=== PATIENT | female | born 1950 | race Two or more races ===

== ENCOUNTER 2017-05-31 09:01 | Emergency (ER) | payer OTHER, MEDICAID ==
[~2017-05-31] VITALS: Ht 154.9 cm; Wt 88.9 kg
[2017-05-31 09:47] LABS: Basophils # (auto) 0.1 uL; Basophils % (auto) 1.1 % (0.0-2.0); Eosinophils # (auto) 0.3 uL; Eosinophils % (auto) 3.9 % (0.0-7.0); Hematocrit 39.7 % (36.0-46.0); Hemoglobin 13.1 g/dL (12.2-16.2); Lymphocytes # (auto) 1.8 uL; Lymphocytes % (auto) 24.1 % (10.0-50.0); Mean Corpuscular Hemoglobin 29.1 pg (28.0-32.0); Mean Corpuscular Hgb Conc. 32.9 g/dL (32.0-36.0); Mean Corpuscular Volume 88.4 fL (80.0-100.0); Mean Platelet Volume 8.9 fL (6.9-10.8); Monocytes # (auto) 0.5 uL; Neutrophils # (auto) 4.7 uL; Neutrophils % (auto) 63.9 % (37.0-80.0); Nucleated Red Blood Cells % 0.2 %; Platelet Count (auto) 217 10^3/uL (140-450); Red Cell Distribution Width 14.7 % (11.8-14.3); White Blood Cell 7.4 10^3/uL (4.4-10.8)
[2017-05-31 10:10] LABS: Urine RBC None Seen /hpf (0 - 4)
[2017-05-31 10:19] LABS: Albumin 3.8 g/dL (3.4-5.0); Alkaline Phosphatase 115 U/L (45-117); Anion Gap 5 (5-15); Aspartate Aminotransferase 42 U/L (15-37); BUN/Creatinine Ratio 19.2; Bilirubin, Total 0.3 mg/dL (0.2-1.0); Blood Urea Nitrogen 15 mg/dL (7-18); Carbon Dioxide 28 mmol/L (21-32); Chloride 102 mmol/L (98-107); GFR African American 95 mL/min; GFR Non-African American 79 mL/min; Glucose 116 mg/dL (74-106); Potassium 5.1 mmol/L (3.5-5.1); Sodium 135 mmol/L (136-145); Total Protein 7.9 g/dL (6.4-8.2)
[2017-05-31 10:20] LABS: Urine Bilirubin Negative (Negative); Urine Blood Negative /uL (Negative); Urine Color Yellow (Yellow); Urine Glucose Normal (Normal); Urine Ketone Negative (Negative); Urine Nitrite Negative (Negative); Urine Squamous Epithelial Cell FEW /hpf (<5); Urine Urobilinogen Normal (Negative); Urine pH 6.5 (5.0-8.0)
[2017-05-31 10:50] VITALS: BP 137/69
[2017-05-31] MEDS ORDERED: POTASSIUM CHL 10% (20 MEQ/15ML) 15ml ORAL SOLN PO ONE (11:00)
== END 2017-05-31 11:17 | disposition home or self-care (01) ==
LOC: ER 09:01
DX: R51 Headache (principal); E11.9 Type 2 diabetes mellitus without complications; I10 Essential (primary) hypertension
CPT/HCPCS: 36415; 70450; 71010; 80053; 81001; 84484; 85025; 93005; 94761

== ENCOUNTER 2020-06-21 18:06 | Inpatient (IN) | payer OTHER, MEDICAID ==
[~2020-06-21] VITALS: Ht 152.4 cm; Wt 84.0 kg
[2020-06-21 20:09] LABS: Basophils # (auto) 0 10 ^3/uL (0-0.2); Basophils % (auto) 0.1 % (0.0-2.0); Eosinophils # (auto) 0 10 ^3/uL (0-0.8); Eosinophils % (auto) 0.3 % (0.0-7.0); Hematocrit 32.2 % (36.0-46.0); Hemoglobin 10.7 g/dL (12.2-16.2); Lymphocytes # (auto) 0.4 10 ^3/uL (0.4-5.4); Lymphocytes % (auto) 3.7 % (10.0-50.0); Mean Corpuscular Hemoglobin 28.9 pg (28.0-32.0); Mean Corpuscular Hgb Conc. 33.1 g/dL (32.0-36.0); Mean Corpuscular Volume 87.4 fL (80.0-100.0); Monocytes # (auto) 0.3 10 ^3/uL (0-1.3); Monocytes % (auto) 2.2 % (0.0-12.0); Neutrophils # (auto) 11.4 10 ^3/uL (1.6-8.6); Neutrophils % (auto) 93.7 % (37.0-80.0); Platelet Count (auto) 224 10^3/uL (140-450); Red Blood Cells 3.69 10^6/uL (4.0-5.20); Red Cell Distribution Width 13.8 % (11.8-14.3); White Blood Cell 12.1 10^3/uL (4.4-10.8)
[2020-06-21 20:24] LABS: Alanine Aminotransferase 29 U/L (13-56); Anion Gap 9 (5-15); Aspartate Aminotransferase 38 U/L (15-37); BUN/Creatinine Ratio 23.9; Blood Urea Nitrogen 22 mg/dL (7-18); Calcium 8.1 mg/dL (8.5-10.1); Carbon Dioxide 24 mmol/L (21-32); Chloride 99 mmol/L (98-107); GFR African American 78 mL/min; GFR Non-African American 65 mL/min; Glucose 132 mg/dL (74-106); Magnesium 2.3 mg/dL (1.6-2.6); Potassium 3.2 mmol/L (3.5-5.1); Sodium 132 mmol/L (136-145)
[2020-06-21 20:32] LABS: Alkaline Phosphatase 95 U/L (45-117); Bilirubin, Total 0.4 mg/dL (0.2-1.0); Total Protein 7.4 g/dL (6.4-8.2)
[2020-06-21] MEDS ORDERED: POTASSIUM CHL 20 Meq TABLET PO ONE (21:30)
[2020-06-21] MEDS ORDERED: MORPHINE SULF INJ 2 MG/ML SYRINGE 1ML IV PRN (22:30)
[2020-06-21] MEDS ORDERED: DOCUSATE SOD 100 MG CAP PO PRN (22:30)
[2020-06-21] MEDS ORDERED: NITROGLYCERIN 0.4 MG SL TAB SL PRN (22:30)
[2020-06-21] MEDS ORDERED: ONDANSETRON HCL 4 MG/2 ML VIAL IV PRN (22:30)
[2020-06-22 01:22] VITALS: BP 131/65
[2020-06-22] MEDS: ALBUTEROL SULF HFA 90MCG INH 200DOSE IN SCH ×3 (06:00→22:10)
[2020-06-22] MEDS: SODIUM CHLOR 0.9% PF (SALINE LOCK) 10ML VIAL/SYR IV SCH ×3 (06:36→22:00)
[2020-06-22] MEDS: HYDROcodone-ACET 5/325MG TAB PO PRN (06:54)
[2020-06-22 08:21] LABS: Basophils # (auto) 0 10 ^3/uL (0-0.2); Basophils % (auto) 0.1 % (0.0-2.0); Eosinophils # (auto) 0 10 ^3/uL (0-0.8); Eosinophils % (auto) 0.2 % (0.0-7.0); Hematocrit 32.8 % (36.0-46.0); Hemoglobin 10.7 g/dL (12.2-16.2); Lymphocytes # (auto) 0.5 10 ^3/uL (0.4-5.4); Lymphocytes % (auto) 4.4 % (10.0-50.0); Mean Corpuscular Hemoglobin 28.9 pg (28.0-32.0); Mean Corpuscular Hgb Conc. 32.6 g/dL (32.0-36.0); Mean Corpuscular Volume 88.5 fL (80.0-100.0); Monocytes # (auto) 0.2 10 ^3/uL (0-1.3); Neutrophils # (auto) 9.8 10 ^3/uL (1.6-8.6); Neutrophils % (auto) 93.3 % (37.0-80.0); Platelet Count (auto) 219 10^3/uL (140-450); Red Cell Distribution Width 13.9 % (11.8-14.3); White Blood Cell 10.4 10^3/uL (4.4-10.8)
[2020-06-22 08:48] LABS: Albumin 2.6 g/dL (3.4-5.0); Calcium 7.9 mg/dL (8.5-10.1); Potassium 3.9 mmol/L (3.5-5.1)
[2020-06-22 08:52] LABS: BUN/Creatinine Ratio 26.4; Bilirubin, Total 0.3 mg/dL (0.2-1.0); Total Protein 6.9 g/dL (6.4-8.2)
[2020-06-22] MEDS ORDERED: ENOXAPARIN SOD 40 MG/0.4 ML SYRINGE SC SCH (10:00)
[2020-06-22] MEDS ORDERED: DOXYCYCLINE 100MG/250ML 250 ML IV SCH (10:00)
[2020-06-22] MEDS: BUDESONIDE (INHALATION) 180 MCG IH IN SCH ×2 (10:05→22:10)
[2020-06-22] MEDS: CHOLECALCIFEROL (VITD3) 2,000 UNIT CAP PO SCH (10:20)
[2020-06-22] MEDS: MULTIPLE VITAMIN TAB PO SCH (10:20)
[2020-06-22] MEDS: ZINC SULFATE 220mg CAP or TAB PO SCH (10:20)
[2020-06-22] MEDS: FAMOTIDINE 20 MG TAB PO SCH ×2 (10:20→22:00)
[2020-06-22] MEDS: DexAMETHasone SOD PHOS 10MG/1ML VIAL INJ IV SCH (10:20)
[2020-06-22] MEDS: ASCORBIC ACID 1,000 MG TAB PO SCH (10:20)
[2020-06-22] MEDS ORDERED: FUROSEMIDE 20 MG/2 ML VIAL IV ONE (12:15)
[2020-06-22] MEDS: ENOXAPARIN SOD 100 MG/1 ML SYRINGE SC ONE ×2 (12:15→12:38)
[2020-06-22] MEDS ORDERED: DEXTROSE (50%) 50ML SYRG IV PRN (12:15)
[2020-06-22] MEDS ORDERED: POTASSIUM CHL 10 Meq TABLET PO ONE (12:15)
[2020-06-22] MEDS: ACETAMINOPHEN 500 MG TAB PO PRN (12:40)
[2020-06-22 15:13] LABS: Urine Bacteria FEW /hpf (None Seen); Urine Blood Negative /uL (Negative); Urine Hyaline Cast FEW /lpf (0 - 2); Urine Mucus FEW (None Seen); Urine Specific Gravity 1.012 (1.001-1.035); Urine WBC 3 /hpf (0 - 5)
[2020-06-22] MEDS: ACCU-CHEK COMFORT CURVE STRIP VI SCH ×2 (17:55→22:00)
[2020-06-22] MEDS: InsuLIN REG 1unit/0.01ml Soln (100units/ml) SC SCH ×2 (18:44→22:00)
[2020-06-22] MEDS: PIPERACILLIN-TAZOB 3.375GM 100 ML IV SCH (18:45)
[2020-06-22] MEDS: ENOXAPARIN SOD 80 MG/0.8ML SYRINGE SC SCH (22:00)
[2020-06-23 04:28] VITALS: BP 116/68
[2020-06-23 04:43] VITALS: BP 117/69
[2020-06-23] MEDS: HYDROcodone-ACET 5/325MG TAB PO PRN ×2 (04:53→20:05)
[2020-06-23 06:00] VITALS: BP 115/61
[2020-06-23] MEDS: PIPERACILLIN-TAZOB 3.375GM 100 ML IV SCH ×5 (06:00→23:00)
[2020-06-23] MEDS: SODIUM CHLOR 0.9% PF (SALINE LOCK) 10ML VIAL/SYR IV SCH ×3 (06:00→23:00)
[2020-06-23] MEDS: ALBUTEROL SULF HFA 90MCG INH 200DOSE IN SCH ×3 (06:00→19:20)
[2020-06-23] MEDS: ACCU-CHEK COMFORT CURVE STRIP VI SCH ×4 (08:56→23:00)
[2020-06-23] MEDS: InsuLIN REG 1unit/0.01ml Soln (100units/ml) SC SCH ×4 (08:57→23:00)
[2020-06-23 09:15] LABS: Basophils # (auto) 0 10 ^3/uL (0-0.2); Basophils % (auto) 0.1 % (0.0-2.0); Eosinophils # (auto) 0 10 ^3/uL (0-0.8); Eosinophils % (auto) 0.1 % (0.0-7.0); Hematocrit 31.6 % (36.0-46.0); Hemoglobin 10.5 g/dL (12.2-16.2); Lymphocytes # (auto) 0.6 10 ^3/uL (0.4-5.4); Lymphocytes % (auto) 8.6 % (10.0-50.0); Mean Corpuscular Hemoglobin 29.1 pg (28.0-32.0); Mean Corpuscular Hgb Conc. 33.1 g/dL (32.0-36.0); Mean Corpuscular Volume 88.1 fL (80.0-100.0); Monocytes # (auto) 0.3 10 ^3/uL (0-1.3); Monocytes % (auto) 4.4 % (0.0-12.0); Neutrophils # (auto) 6.1 10 ^3/uL (1.6-8.6); Neutrophils % (auto) 86.8 % (37.0-80.0); Nucleated Red Blood Cells % 0.2 %; Platelet Count (auto) 289 10^3/uL (140-450); Red Blood Cells 3.59 10^6/uL (4.0-5.20); Red Cell Distribution Width 13.6 % (11.8-14.3)
[2020-06-23] MEDS ORDERED: FUROSEMIDE 20 MG/2 ML VIAL IV SCH (10:00)
[2020-06-23] MEDS ORDERED: POTASSIUM CHL 10 Meq TABLET PO SCH (10:00)
[2020-06-23] MEDS: BUDESONIDE (INHALATION) 180 MCG IH IN SCH ×2 (10:00→19:20)
[2020-06-23 10:32] LABS: BUN/Creatinine Ratio 26.5; Calcium 8.3 mg/dL (8.5-10.1); Potassium 3.9 mmol/L (3.5-5.1)
[2020-06-23] MEDS: DexAMETHasone SOD PHOS 10MG/1ML VIAL INJ IV SCH (10:43)
[2020-06-23] MEDS: ZINC SULFATE 220mg CAP or TAB PO SCH (10:45)
[2020-06-23] MEDS: MULTIPLE VITAMIN TAB PO SCH (10:49)
[2020-06-23] MEDS: ASCORBIC ACID 1,000 MG TAB PO SCH (10:50)
[2020-06-23] MEDS: FAMOTIDINE 20 MG TAB PO SCH ×2 (10:50→23:00)
[2020-06-23] MEDS: CHOLECALCIFEROL (VITD3) 2,000 UNIT CAP PO SCH (10:50)
[2020-06-23] MEDS: ENOXAPARIN SOD 80 MG/0.8ML SYRINGE SC SCH ×2 (10:51→23:00)
[2020-06-23 22:30] VITALS: BP 147/79
[2020-06-24] VITALS (7 sets, daily range): BP systolic 113–159; BP diastolic 61–84
[2020-06-24] MEDS ORDERED: METF-371 PO (00:19)
[2020-06-24] MEDS ORDERED: LOSA-69 PO (00:19)
[2020-06-24] MEDS ORDERED: LEVO100T8 PO (00:19)
[2020-06-24] MEDS: ALBUTEROL SULF HFA 90MCG INH 200DOSE IN SCH ×3 (05:55→22:58)
[2020-06-24] MEDS: BUDESONIDE (INHALATION) 180 MCG IH IN SCH ×2 (05:55→22:58)
[2020-06-24] MEDS: SODIUM CHLOR 0.9% PF (SALINE LOCK) 10ML VIAL/SYR IV SCH ×3 (06:10→21:53)
[2020-06-24] MEDS: PIPERACILLIN-TAZOB 3.375GM 100 ML IV SCH ×3 (06:10→20:04)
[2020-06-24] MEDS: InsuLIN REG 1unit/0.01ml Soln (100units/ml) SC SCH ×4 (06:11→21:53)
[2020-06-24] MEDS: ACCU-CHEK COMFORT CURVE STRIP VI SCH ×4 (06:11→21:54)
[2020-06-24 07:57] LABS: BUN/Creatinine Ratio 34.9; Calcium 8.2 mg/dL (8.5-10.1); Potassium 3.9 mmol/L (3.5-5.1)
[2020-06-24] MEDS: DexAMETHasone SOD PHOS 10MG/1ML VIAL INJ IV SCH (08:31)
[2020-06-24] MEDS: MULTIPLE VITAMIN TAB PO SCH (08:31)
[2020-06-24] MEDS: FAMOTIDINE 20 MG TAB PO SCH ×2 (08:31→21:53)
[2020-06-24] MEDS: ENOXAPARIN SOD 80 MG/0.8ML SYRINGE SC SCH (08:31)
[2020-06-24] MEDS: ASCORBIC ACID 1,000 MG TAB PO SCH (08:32)
[2020-06-24] MEDS: CHOLECALCIFEROL (VITD3) 2,000 UNIT CAP PO SCH (08:32)
[2020-06-24] MEDS: ZINC SULFATE 220mg CAP or TAB PO SCH (08:32)
[2020-06-24] MEDS ORDERED: POTASSIUM CHL 10 Meq TABLET PO ONE (12:00)
[2020-06-24] MEDS ORDERED: FUROSEMIDE 20 MG/2 ML VIAL IV ONE (12:00)
[2020-06-24] MEDS: guaiFENesin-DM 100/10mg/5ml SYR PO PRN ×2 (12:18→16:11)
[2020-06-24] MEDS ORDERED: IOHEXOL 350 MG/ML 100ML IJ ONE (12:51)
[2020-06-24 13:49] LABS: Albumin 2.6 g/dL (3.4-5.0); Bilirubin, Direct 0.1 mg/dL (0-0.2); Bilirubin, Total 0.2 mg/dL (0.2-1.0); Total Protein 6.9 g/dL (6.4-8.2)
[2020-06-24] MEDS ORDERED: REMDESIVIR 200 MG in NS 210ml LOADING DOSE ADULT IV ONE (18:00)
[2020-06-24] MEDS: ACETAMINOPHEN 500 MG TAB PO PRN (21:57)
[2020-06-25] MEDS: PIPERACILLIN-TAZOB 3.375GM 100 ML IV SCH ×2 (00:54→06:41)
[2020-06-25] MEDS: guaiFENesin-DM 100/10mg/5ml SYR PO PRN ×3 (00:54→17:24)
[2020-06-25 06:00] VITALS: BP 146/76
[2020-06-25] MEDS: SODIUM CHLOR 0.9% PF (SALINE LOCK) 10ML VIAL/SYR IV SCH ×3 (06:40→22:05)
[2020-06-25] MEDS: InsuLIN REG 1unit/0.01ml Soln (100units/ml) SC SCH ×4 (06:41→22:00)
[2020-06-25] MEDS: ACCU-CHEK COMFORT CURVE STRIP VI SCH ×4 (06:41→22:05)
[2020-06-25 08:04] LABS: Basophils # (auto) 0 10 ^3/uL (0-0.2); Basophils % (auto) 0.3 % (0.0-2.0); Eosinophils # (auto) 0.2 10 ^3/uL (0-0.8); Eosinophils % (auto) 3.3 % (0.0-7.0); Hematocrit 32.8 % (36.0-46.0); Hemoglobin 10.8 g/dL (12.2-16.2); Lymphocytes # (auto) 1.2 10 ^3/uL (0.4-5.4); Lymphocytes % (auto) 16.7 % (10.0-50.0); Mean Corpuscular Hgb Conc. 32.9 g/dL (32.0-36.0); Mean Corpuscular Volume 88.3 fL (80.0-100.0); Monocytes # (auto) 0.8 10 ^3/uL (0-1.3); Monocytes % (auto) 11.6 % (0.0-12.0); Neutrophils # (auto) 4.8 10 ^3/uL (1.6-8.6); Neutrophils % (auto) 68.1 % (37.0-80.0); Platelet Count (auto) 356 10^3/uL (140-450); Red Blood Cells 3.72 10^6/uL (4.0-5.20); Red Cell Distribution Width 14.2 % (11.8-14.3)
[2020-06-25 08:20] LABS: Albumin 2.6 g/dL (3.4-5.0); Calcium 8.1 mg/dL (8.5-10.1); Potassium 3.8 mmol/L (3.5-5.1)
[2020-06-25 08:24] LABS: BUN/Creatinine Ratio 28.2; Bilirubin, Total 0.2 mg/dL (0.2-1.0); Total Protein 7.1 g/dL (6.4-8.2)
[2020-06-25] MEDS: ALBUTEROL SULF HFA 90MCG INH 200DOSE IN SCH ×3 (08:42→20:26)
[2020-06-25] MEDS: BUDESONIDE (INHALATION) 180 MCG IH IN SCH ×2 (08:42→20:26)
[2020-06-25 08:53] VITALS: BP 124/64
[2020-06-25] MEDS: DexAMETHasone SOD PHOS 10MG/1ML VIAL INJ IV SCH (09:46)
[2020-06-25] MEDS: CHOLECALCIFEROL (VITD3) 2,000 UNIT CAP PO SCH (09:47)
[2020-06-25] MEDS: ENOXAPARIN SOD 40 MG/0.4 ML SYRINGE SC SCH (09:47)
[2020-06-25] MEDS: MULTIPLE VITAMIN TAB PO SCH (09:47)
[2020-06-25] MEDS: ZINC SULFATE 220mg CAP or TAB PO SCH (09:47)
[2020-06-25] MEDS: ASCORBIC ACID 1,000 MG TAB PO SCH (09:47)
[2020-06-25] MEDS: FAMOTIDINE 20 MG TAB PO SCH ×2 (09:47→22:05)
[2020-06-25] MEDS ORDERED: FUROSEMIDE 20 MG/2 ML VIAL IV SCH (10:00)
[2020-06-25] MEDS ORDERED: POTASSIUM CHL 10 Meq TABLET PO SCH (10:00)
[2020-06-25] MEDS ORDERED: FUROSEMIDE 20 MG/2 ML VIAL IV ONE (10:15)
[2020-06-25] MEDS ORDERED: POTASSIUM CHL 10 Meq TABLET PO ONE (10:15)
[2020-06-25] MEDS: HYDROcodone-ACET 5/325MG TAB PO PRN ×2 (12:17→17:24)
[2020-06-25 13:00] VITALS: BP 109/67
[2020-06-25] MEDS: REMDESIVIR 100mg in NS 230ml DAILYx4DAYS (NO VENT) IV SCH (16:43)
[2020-06-25 17:00] VITALS: BP 111/64
[2020-06-25 21:50] VITALS: BP 131/70
[2020-06-26 00:27] VITALS: BP 131/70
[2020-06-26] MEDS: HYDROcodone-ACET 5/325MG TAB PO PRN ×4 (00:51→23:14)
[2020-06-26] MEDS: InsuLIN REG 1unit/0.01ml Soln (100units/ml) SC SCH ×4 (07:00→22:00)
[2020-06-26] MEDS: ALBUTEROL SULF HFA 90MCG INH 200DOSE IN SCH ×3 (07:00→22:01)
[2020-06-26] MEDS: BUDESONIDE (INHALATION) 180 MCG IH IN SCH ×2 (07:00→22:01)
[2020-06-26] MEDS: SODIUM CHLOR 0.9% PF (SALINE LOCK) 10ML VIAL/SYR IV SCH ×3 (07:05→22:23)
[2020-06-26] MEDS: ACCU-CHEK COMFORT CURVE STRIP VI SCH ×4 (07:06→22:23)
[2020-06-26 09:00] VITALS: BP 100/53
[2020-06-26] MEDS: ENOXAPARIN SOD 40 MG/0.4 ML SYRINGE SC SCH (11:09)
[2020-06-26] MEDS: CHOLECALCIFEROL (VITD3) 2,000 UNIT CAP PO SCH (11:09)
[2020-06-26] MEDS: ASCORBIC ACID 1,000 MG TAB PO SCH (11:09)
[2020-06-26] MEDS: ZINC SULFATE 220mg CAP or TAB PO SCH (11:09)
[2020-06-26] MEDS: FAMOTIDINE 20 MG TAB PO SCH ×2 (11:10→22:23)
[2020-06-26] MEDS: POTASSIUM CHL 10 Meq TABLET PO SCH (11:10)
[2020-06-26] MEDS: MULTIPLE VITAMIN TAB PO SCH (11:10)
[2020-06-26] MEDS: DexAMETHasone SOD PHOS 10MG/1ML VIAL INJ IV SCH (11:11)
[2020-06-26] MEDS: FUROSEMIDE 20 MG/2 ML VIAL IV SCH (11:11)
[2020-06-26] MEDS: guaiFENesin-DM 100/10mg/5ml SYR PO PRN ×3 (11:11→23:58)
[2020-06-26 13:00] VITALS: BP 113/58
[2020-06-26] MEDS: REMDESIVIR 100mg in NS 230ml DAILYx4DAYS (NO VENT) IV SCH (17:03)
[2020-06-26 17:30] VITALS: BP 111/62
[2020-06-26 21:00] VITALS: BP 121/65
[2020-06-27 05:00] VITALS: BP 126/72
[2020-06-27] MEDS: BUDESONIDE (INHALATION) 180 MCG IH IN SCH ×2 (06:46→22:32)
[2020-06-27] MEDS: ALBUTEROL SULF HFA 90MCG INH 200DOSE IN SCH ×3 (06:46→22:32)
[2020-06-27] MEDS: InsuLIN REG 1unit/0.01ml Soln (100units/ml) SC SCH ×4 (06:47→22:00)
[2020-06-27] MEDS: ACCU-CHEK COMFORT CURVE STRIP VI SCH ×4 (06:47→22:43)
[2020-06-27] MEDS: SODIUM CHLOR 0.9% PF (SALINE LOCK) 10ML VIAL/SYR IV SCH ×3 (06:47→22:43)
[2020-06-27 07:31] LABS: Albumin 2.7 g/dL (3.4-5.0); Calcium 8.3 mg/dL (8.5-10.1); Potassium 3.9 mmol/L (3.5-5.1)
[2020-06-27 07:33] LABS: BUN/Creatinine Ratio 30.8
[2020-06-27 07:35] LABS: Bilirubin, Total 0.2 mg/dL (0.2-1.0); Total Protein 7.1 g/dL (6.4-8.2)
[2020-06-27 09:00] VITALS: BP 95/45
[2020-06-27] MEDS: ZINC SULFATE 220mg CAP or TAB PO SCH (10:12)
[2020-06-27] MEDS: FAMOTIDINE 20 MG TAB PO SCH ×2 (10:12→22:43)
[2020-06-27] MEDS: DexAMETHasone SOD PHOS 10MG/1ML VIAL INJ IV SCH (10:12)
[2020-06-27] MEDS: MULTIPLE VITAMIN TAB PO SCH (10:12)
[2020-06-27] MEDS: CHOLECALCIFEROL (VITD3) 2,000 UNIT CAP PO SCH (10:13)
[2020-06-27] MEDS: ENOXAPARIN SOD 40 MG/0.4 ML SYRINGE SC SCH (10:13)
[2020-06-27] MEDS: ASCORBIC ACID 1,000 MG TAB PO SCH (10:13)
[2020-06-27] MEDS: guaiFENesin-DM 100/10mg/5ml SYR PO PRN ×2 (10:49→22:43)
[2020-06-27] MEDS: POTASSIUM CHL 10 Meq TABLET PO SCH (11:07)
[2020-06-27] MEDS: FUROSEMIDE 20 MG/2 ML VIAL IV SCH (11:07)
[2020-06-27 12:35] VITALS: BP 114/65
[2020-06-27 16:50] VITALS: BP 101/61
[2020-06-27] MEDS: REMDESIVIR 100mg in NS 230ml DAILYx4DAYS (NO VENT) IV SCH (17:25)
[2020-06-27 22:00] VITALS: BP 108/62
[2020-06-28 05:00] VITALS: BP 118/65
[2020-06-28] MEDS: ALBUTEROL SULF HFA 90MCG INH 200DOSE IN SCH ×2 (06:36→21:53)
[2020-06-28] MEDS: ACCU-CHEK COMFORT CURVE STRIP VI SCH ×4 (06:36→21:12)
[2020-06-28] MEDS: InsuLIN REG 1unit/0.01ml Soln (100units/ml) SC SCH ×4 (06:36→21:12)
[2020-06-28] MEDS: SODIUM CHLOR 0.9% PF (SALINE LOCK) 10ML VIAL/SYR IV SCH ×3 (06:36→20:15)
[2020-06-28] MEDS: BUDESONIDE (INHALATION) 180 MCG IH IN SCH ×2 (06:36→21:53)
[2020-06-28 09:00] VITALS: BP 105/66
[2020-06-28] MEDS: guaiFENesin-DM 100/10mg/5ml SYR PO PRN ×3 (09:17→20:16)
[2020-06-28] MEDS: CHOLECALCIFEROL (VITD3) 2,000 UNIT CAP PO SCH (09:18)
[2020-06-28] MEDS: ENOXAPARIN SOD 40 MG/0.4 ML SYRINGE SC SCH ×2 (09:18→20:15)
[2020-06-28] MEDS: POTASSIUM CHL 10 Meq TABLET PO SCH (09:18)
[2020-06-28] MEDS: FAMOTIDINE 20 MG TAB PO SCH ×2 (09:18→20:15)
[2020-06-28] MEDS: HYDROcodone-ACET 5/325MG TAB PO PRN ×2 (09:18→15:34)
[2020-06-28] MEDS: MULTIPLE VITAMIN TAB PO SCH (09:18)
[2020-06-28] MEDS: ASCORBIC ACID 1,000 MG TAB PO SCH (09:19)
[2020-06-28] MEDS: FUROSEMIDE 20 MG/2 ML VIAL IV SCH (09:19)
[2020-06-28] MEDS: ZINC SULFATE 220mg CAP or TAB PO SCH (09:19)
[2020-06-28] MEDS: DexAMETHasone SOD PHOS 10MG/1ML VIAL INJ IV SCH (09:20)
[2020-06-28 12:50] VITALS: BP 102/59
[2020-06-28 16:50] VITALS: BP 106/59
[2020-06-28] MEDS: REMDESIVIR 100mg in NS 230ml DAILYx4DAYS (NO VENT) IV SCH (17:42)
[2020-06-28 22:00] VITALS: BP 128/72
[2020-06-29 01:14] VITALS: BP 131/70
[2020-06-29 05:00] VITALS: BP 114/64
[2020-06-29] MEDS: SODIUM CHLOR 0.9% PF (SALINE LOCK) 10ML VIAL/SYR IV SCH ×3 (06:27→21:10)
[2020-06-29] MEDS: InsuLIN REG 1unit/0.01ml Soln (100units/ml) SC SCH ×4 (06:27→21:08)
[2020-06-29] MEDS: ACCU-CHEK COMFORT CURVE STRIP VI SCH ×4 (06:27→21:11)
[2020-06-29] MEDS: ALBUTEROL SULF HFA 90MCG INH 200DOSE IN SCH ×3 (06:34→22:41)
[2020-06-29] MEDS: BUDESONIDE (INHALATION) 180 MCG IH IN SCH ×2 (06:35→22:41)
[2020-06-29 09:00] VITALS: BP 100/59
[2020-06-29] MEDS: POTASSIUM CHL 10 Meq TABLET PO SCH (09:15)
[2020-06-29] MEDS: FAMOTIDINE 20 MG TAB PO SCH ×2 (09:15→21:10)
[2020-06-29] MEDS: HYDROcodone-ACET 5/325MG TAB PO PRN ×2 (09:15→21:12)
[2020-06-29] MEDS: MULTIPLE VITAMIN TAB PO SCH (09:15)
[2020-06-29] MEDS: ASCORBIC ACID 1,000 MG TAB PO SCH (09:15)
[2020-06-29] MEDS: ZINC SULFATE 220mg CAP or TAB PO SCH (09:16)
[2020-06-29] MEDS: DexAMETHasone SOD PHOS 10MG/1ML VIAL INJ IV SCH (09:16)
[2020-06-29] MEDS: guaiFENesin-DM 100/10mg/5ml SYR PO PRN (09:16)
[2020-06-29] MEDS: ENOXAPARIN SOD 40 MG/0.4 ML SYRINGE SC SCH ×2 (09:17→21:11)
[2020-06-29] MEDS: CHOLECALCIFEROL (VITD3) 2,000 UNIT CAP PO SCH (09:17)
[2020-06-29] MEDS: FUROSEMIDE 20 MG/2 ML VIAL IV SCH (09:17)
[2020-06-29 13:00] VITALS: BP 96/54
[2020-06-29 17:00] VITALS: BP 113/57
[2020-06-29 22:00] VITALS: BP 107/63
[2020-06-30 05:00] VITALS: BP 99/53
[2020-06-30] MEDS: BUDESONIDE (INHALATION) 180 MCG IH IN SCH (06:27)
[2020-06-30] MEDS: ALBUTEROL SULF HFA 90MCG INH 200DOSE IN SCH ×2 (06:27→13:29)
[2020-06-30] MEDS: InsuLIN REG 1unit/0.01ml Soln (100units/ml) SC SCH ×3 (06:31→17:00)
[2020-06-30] MEDS: SODIUM CHLOR 0.9% PF (SALINE LOCK) 10ML VIAL/SYR IV SCH ×2 (06:33→14:00)
[2020-06-30] MEDS: ACCU-CHEK COMFORT CURVE STRIP VI SCH ×3 (06:33→17:00)
[2020-06-30 09:00] VITALS: BP 100/60
[2020-06-30] MEDS: FUROSEMIDE 20 MG/2 ML VIAL IV SCH (10:00)
[2020-06-30] MEDS: POTASSIUM CHL 10 Meq TABLET PO SCH (10:03)
[2020-06-30] MEDS: MULTIPLE VITAMIN TAB PO SCH (10:03)
[2020-06-30] MEDS: ZINC SULFATE 220mg CAP or TAB PO SCH (10:03)
[2020-06-30] MEDS: DexAMETHasone SOD PHOS 10MG/1ML VIAL INJ IV SCH (10:03)
[2020-06-30] MEDS: CHOLECALCIFEROL (VITD3) 2,000 UNIT CAP PO SCH (10:04)
[2020-06-30] MEDS: ENOXAPARIN SOD 40 MG/0.4 ML SYRINGE SC SCH (10:04)
[2020-06-30] MEDS: ASCORBIC ACID 1,000 MG TAB PO SCH (10:04)
[2020-06-30] MEDS: FAMOTIDINE 20 MG TAB PO SCH (10:04)
[2020-06-30] MEDS ORDERED: ALBUAER3 IN (10:25)
[2020-06-30] MEDS ORDERED: METH4PAK PO (10:25)
[2020-06-30] MEDS ORDERED: ASCO10003 PO (10:25)
[2020-06-30] MEDS ORDERED: CHOL1CAP47 PO (10:25)
[2020-06-30] MEDS ORDERED: BUDE2SUS3 IN (10:25)
[2020-06-30] MEDS ORDERED: ZINC220T6 PO (10:25)
[2020-06-30] MEDS ORDERED: PANT40TA2 PO (12:53)
[2020-06-30] MEDS ORDERED: ASPI-378 PO (12:53)
[2020-06-30 13:00] VITALS: BP 111/56
[2020-06-30 17:00] VITALS: BP 108/56
[2020-06-30 18:43] VITALS: BP 108/56
== END 2020-06-30 21:00 | disposition home or self-care (01) | DRG 871 ==
LOC: ER 18:06 → TELE 22:28 → TELE-WESTW 06-23 22:01 → TELE-EAST 06-25 07:37
PROVIDERS: ADMIT Nurse Practitioner Family; ATTEND Internal Medicine
PROC: XW13325 Transfusion of Convalescent Plasma (Nonautologous) into Peripheral Vein, Percutaneous Approach, New Technology Group 5 (ICD-10-PCS; principal; 2020-06-23)
PROC: XW033E5 Introduction of Remdesivir Anti-infective into Peripheral Vein, Percutaneous Approach, New Technology Group 5 (ICD-10-PCS; 2020-06-24)
DX: A41.89 Other specified sepsis (principal); U07.1 COVID-19; J12.89 Other viral pneumonia; N17.0 Acute kidney failure with tubular necrosis; J96.01 Acute respiratory failure with hypoxia; E87.1 Hypo-osmolality and hyponatremia; J98.11 Atelectasis; E03.9 Hypothyroidism, unspecified; E55.9 Vitamin D deficiency, unspecified; E66.9 Obesity, unspecified; I10 Essential (primary) hypertension; E11.9 Type 2 diabetes mellitus without complications; E87.6 Hypokalemia; Z79.4 Long term (current) use of insulin; Z82.49 Family history of ischemic heart disease and other diseases of the circulatory system; Z83.3 Family history of diabetes mellitus; Z68.35 Body mass index [BMI] 35.0-35.9, adult
CPT/HCPCS: 36415; 36600; 71045; 71275; 80048; 80053; 80061; 80076; 81001; 82306; 82728; 82805; 82962; 83036; 83605; 83615; 83735; 84443; 84484; 85025; 85379; 86141; 86850; 86900; 86901; 87040; 87426; 94640; 97110; 97116; 97163; 97530; G0378; J1100; J1815; J2405; J2543; J3490

== ENCOUNTER → 2020-08-20 | Outpatient (CLI) | payer OTHER, MEDICAID ==
[~2020-08-20] MED LIST: ALBUAER3 IN; ASCO10003 PO; ASPI-378 PO; BUDE2SUS3 IN; CHOL1CAP47 PO; LEVO100T8 PO; LOSA-69 PO; METF-371 PO; METH4PAK PO; PANT40TA2 PO; ZINC220T6 PO
[2020-08-20 07:22] LABS: Urine WBC None Seen /hpf (0 - 5)
[2020-08-20 07:29] LABS: Basophils # (auto) 0.1 10 ^3/uL (0-0.2); Eosinophils # (auto) 0.3 10 ^3/uL (0-0.8); Eosinophils % (auto) 4.2 % (0.0-7.0); Hematocrit 36.5 % (36.0-46.0); Hemoglobin 12.1 g/dL (12.2-16.2); Lymphocytes # (auto) 1.4 10 ^3/uL (0.4-5.4); Lymphocytes % (auto) 22.5 % (10.0-50.0); Mean Corpuscular Hemoglobin 29.1 pg (28.0-32.0); Mean Corpuscular Hgb Conc. 33.1 g/dL (32.0-36.0); Monocytes # (auto) 0.5 10 ^3/uL (0-1.3); Monocytes % (auto) 8.1 % (0.0-12.0); Neutrophils # (auto) 3.9 10 ^3/uL (1.6-8.6); Neutrophils % (auto) 64.2 % (37.0-80.0); Nucleated Red Blood Cells % 0.2 %; Red Blood Cells 4.15 10^6/uL (4.0-5.20); Red Cell Distribution Width 15.7 % (11.8-14.3); White Blood Cell 6.1 10^3/uL (4.4-10.8)
[2020-08-20 07:30] LABS: Urine Bacteria NONE SEEN /hpf (None Seen); Urine Blood Negative /uL (Negative); Urine Specific Gravity 1.009 (1.001-1.035)
[2020-08-20 07:59] LABS: Albumin 3.6 g/dL (3.4-5.0); Calcium 9.1 mg/dL (8.5-10.1)
[2020-08-20 08:04] LABS: BUN/Creatinine Ratio 17.1; Bilirubin, Total 0.2 mg/dL (0.2-1.0); Total Protein 7.8 g/dL (6.4-8.2)
== END | disposition home or self-care (01) ==
LOC: LAB 07:10
PROVIDERS: ATTEND Student in an Organized Health Care Education/Training Program
DX: I10 Essential (primary) hypertension (principal); E11.9 Type 2 diabetes mellitus without complications; E03.9 Hypothyroidism, unspecified; M25.50 Pain in unspecified joint
CPT/HCPCS: 36415; 80053; 80061; 81001; 82043; 83036; 84443; 85025; 86431

== ENCOUNTER → 2021-03-21 | Outpatient (CLI) | payer OTHER ==
[2021-03-21 09:23] LABS: Calcium 9.6 mg/dL (8.5-10.1); Potassium 5.1 mmol/L (3.5-5.1)
[2021-03-21 09:26] LABS: BUN/Creatinine Ratio 29.7
== END | disposition home or self-care (01) ==
LOC: LAB 08:06
PROVIDERS: ATTEND Student in an Organized Health Care Education/Training Program
DX: E78.5 Hyperlipidemia, unspecified (principal); E11.9 Type 2 diabetes mellitus without complications; E03.9 Hypothyroidism, unspecified
CPT/HCPCS: 36415; 80048; 80061; 83036; 84443

== ENCOUNTER 2024-07-29 22:46 | Emergency (ER) | payer OTHER ==
[~2024-07-29] VITALS: Ht 157.5 cm; Wt 92.4 kg
[~2024-07-29 22:46] MED LIST changes: +LOSA-534 PO; -LOSA-69 PO
[2024-07-30 00:05] LABS: Basophils # (auto) 0.1 10 ^3/uL (0-0.2); Basophils % (auto) 0.5 % (0.0-2.0); Eosinophils # (auto) 0.4 10 ^3/uL (0-0.8); Eosinophils % (auto) 3.5 % (0.0-7.0); Hematocrit 37.7 % (36.0-46.0); Hemoglobin 12.4 g/dL (12.2-16.2); Lymphocytes # (auto) 1.5 10 ^3/uL (0.4-5.4); Lymphocytes % (auto) 14.4 % (10.0-50.0); Mean Corpuscular Hemoglobin 29.2 pg (28.0-32.0); Mean Corpuscular Volume 88.4 fL (80.0-100.0); Monocytes # (auto) 0.9 10 ^3/uL (0-1.3); Monocytes % (auto) 8.5 % (0.0-12.0); Neutrophils # (auto) 7.8 10 ^3/uL (1.6-8.6); Neutrophils % (auto) 73.1 % (37.0-80.0); Nucleated Red Blood Cells % 0.1 %; Platelet Count (auto) 224 10^3/uL (140-450); Red Blood Cells 4.27 10^6/uL (4.0-5.20); Red Cell Distribution Width 15.2 % (11.8-14.3); White Blood Cell 10.6 10^3/uL (4.4-10.8)
[2024-07-30 00:21] LABS: Alanine Aminotransferase 33 U/L (7-40); Albumin 4.8 g/dL (3.2-4.8); Anion Gap 9 (5-15); BUN/Creatinine Ratio 17.5 (10.0-20.0); Bilirubin, Total 0.4 mg/dL (0.2-1.0); Blood Urea Nitrogen 14 mg/dL (9-23); Carbon Dioxide 24 mmol/L (20-31); Chloride 102 mmol/L (98-107); Potassium 4.4 mmol/L (3.5-5.1); Total Protein 7.6 g/dL (5.7-8.2)
[2024-07-30 00:25] LABS: Alkaline Phosphatase 144 U/L (46-116); Aspartate Aminotransferase 57 U/L (13-40); Glucose 192 mg/dL (74-106); Sodium 135 mmol/L (136-145)
--- NOTE | 2024-07-30 00:29 | DVH ---
EXAM: XY CHEST PORTABLE CLINICAL HISTORY: htn TECHNIQUE: Single AP view of the chest WID: COMPARISON: CHEST PORTABLE on DOS: 06/26/20 FINDINGS: Lines and tubes: None Chest: The heart size and pulmonary vasculature is within normal limits. Calcified plaque projects over the aortic arch. No pleural effusion, pneumothorax, or consolidation. The osseous structures are grossly intact. Multilevel thoracic spondylosis. IMPRESSION: No acute cardiopulmonary abnormality.
--- NOTE | 2024-07-30 01:01 | ED.PDOC ---
History of Present Illness HPI Comments 73F presents with one hour of 10/10 sharp right lower back pain that radiates around her right lower abdomen. She reports cough, congestion, and generalized fatigue. Chief Complaint: Back Pain Time Seen by MD: 23:20 Primary Care Provider: DEV Allergies: Coded Allergies: NO KNOWN ALLERGIES (Unverified , 05/31/17) Home Meds Active Scripts Pantoprazole Sodium Sesquihydr (Protonix) 40 Mg Tab, 40 MG PO DAILY, #30 TAB Prov:TAMMY AARON MD 06/30/20 Aspirin (CATHIE ASPIRIN EC LOW DOSE) 81 Mg Tab, 1 TAB PO DAILY, #30 TAB Prov:TAMMY AARON MD 06/30/20 Budesonide (Inhalation) (Budesonide) 1 Mg/2 Ml Estelle, 360 MCG IN BID for 14 Days, #1 INHALER Prov:TAMMY AARNO MD 06/30/20 Cholecalciferol (Vitamin D3 Super Strength) 2,000 Unit Cap, 4000 UNIT PO DAILY, #30 CAP Prov:TAMMY AARON MD 06/30/20 Albuterol Sulfate (VENTOLIN MDI) 90 Mcg Ih, 90 MCG IN Q6HP PRN for 30 Days, #1 INH Prov:TAMMY AARON MD 06/30/20 Methylprednisolone (Medrol Dosepak) 4 Mg Hilton, 4 MG PO UD, #21 TAB UAD Prov:TAMMY AARON MD 06/30/20 Zinc Sulfate (Zinc Sulfate) 220 Mg Tab, 220 MG PO DAILY, #30 TAB Prov:TAMMY AARON MD 06/30/20 Ascorbic Acid (Gnp Vitamin C W/Sarah Hips) 1,000 Mg Tab, 1000 MG PO DAILY, #30 TAB Prov:TAMMY AARON MD 06/30/20 Reported Medications Losartan Potassium (Losartan Potassium) 50 Mg Tab, 50 MG PO HS for 30 Days, MG 06/24/20 Levothyroxine Sodium (Levothyroxine Sodium) 100 Mcg Tab, 100 MCG PO QAM for 30 Days, MCG 06/24/20 Metformin Hydrochloride (Metformin Hcl) 850 Mg Tab, 850 MG PO BID for 30 Days, MG 06/24/20 Information Source: Patient Mode of Arrival: Ambulatory Past Medical History PAST MEDICAL HISTORY: DM, HTN, Thyroid Surgical History: Denies all surgeries ALLERGIST IMMUNOLOGIST History: No Pertinent ALLERGIST IMMUNOLOGIST History Family History Family History: Reviewed,noncontributory to illness Social History Smoker: Non-Smoker Alcohol: Denies ETOH Use Drugs: Denies Drug Use Lives In: Home Physical Exam General Appearance: Mild Distress, Normal HEENT: Normal ENT Inspection, Pharynx Normal, TMs Normal Neck: Full Range of Motion, Non-Tender, Normal, Normal Inspection Respiratory: Chest Non-Tender, Lungs Clear, No Accessory Muscle Use, No Respiratory Distress, Normal Breath Sounds Cardiovascular: No Edema, No JVD, No Murmur, No Gallop, Normal Peripheral Pulses, Regular Rate/Rhythm Breast Exam: Deferred Gastrointestinal: No Organomegaly, Non Tender, No Pulsatile Mass, Normal Bowel Sounds, Soft Genitalia: Deferred Pelvic: Deferred Rectal: Deferred Extremities: No calf tenderness, Normal capillary refill, Normal inspection, Normal range of motion, Non-tender, No pedal edema Musculoskeletal : Apperance: Normal Neurologic: Alert, corral boss II-XII nml as Tested, No Motor Deficits, Normal Affect, Normal Mood, No Sensory Deficits Cerebellar Function: Normal Reflexes: Normal Skin: Dry, Normal Color, Warm Lymphatic: No Adenopathy Was a procedure done? Was a procedure done?: No Differential Dx Considerations may include: Differential diagnosis includes but is not limited to: appendicitis, diverticulitis, colitis, urinary tract infection, ureteral colic / stone, bowel obstruction, and others X-Ray, Labs, Meds, VS Vital Signs Date Time Temp Pulse Resp B/P (MAP) Pulse Ox O2 Delivery O2 Flow Rate FiO2 07/30/24 02:12 70 20 97 Room Air 07/30/24 02:12 70 20 205/103 (137) 97 07/30/24 02:10 70 20 205/103 07/29/24 23:23 97.9 80 18 216/97 (136) 97 Lab Test 07/30/24 02:11 07/29/24 23:48 Range/Units Urine Color Pending Urine Clarity Pending Urine pH Pending Urine Specific Merkel Pending Urine Protein Pending Urine Ketones Pending Urine Blood Pending Urine Nitrite Pending Urine Bilirubin Pending Urine Urobilinogen Pending Urine Leukocyte Esterase Pending Urine RBC Pending Urine WBC Pending Urine Squamous Epithelial Cells Pending Urine Bacteria Pending Urine Glucose Pending White Blood Count 10.6 4.4-10.8 10^3/uL Red Blood Count 4.27 4.0-5.20 10^6/uL Hemoglobin 12.4 12.2-16.2 g/dL Hematocrit 37.7 36.0-46.0 % Mean Corpuscular Volume 88.4 80.0-100.0 fL Mean Corpuscular Hemoglobin 29.2 28.0-32.0 pg Mean Corpuscular Hemoglobin Concent 33.0 32.0-36.0 g/dL Red Cell Distribution Width 15.2 H 11.8-14.3 % Platelet Count 224 140-450 10^3/uL Mean Platelet Volume 8.8 6.9-10.8 fL Neutrophils (%) (Auto) 73.1 37.0-80.0 % Lymphocytes (%) (Auto) 14.4 10.0-50.0 % Monocytes (%) (Auto) 8.5 0.0-12.0 % Eosinophils (%) (Auto) 3.5 0.0-7.0 % Basophils (%) (Auto) 0.5 0.0-2.0 % Neutrophils # (Auto) 7.8 1.6-8.6 10 ^3/uL Lymphocytes # (Auto) 1.5 0.4-5.4 10 ^3/uL Monocytes # (Auto) 0.9 0-1.3 10 ^3/uL Eosinophils # (Auto) 0.4 0-0.8 10 ^3/uL Basophils # (Auto) 0.1 0-0.2 10 ^3/uL Nucleated Red Blood Cells 0.1 % Sodium Level 135 L 136-145 mmol/L Potassium Level 4.4 3.5-5.1 mmol/L Chloride Level 102 98-107 mmol/L Carbon Dioxide Level 24 20-31 mmol/L Anion Gap 9 5-15 Blood Urea Nitrogen 14 9-23 mg/dL Creatinine 0.80 0.550-1.02 mg/dL Glomerular Filtration Rate Calc 78 >90 mL/min BUN/Creatinine Ratio 17.5 10.0-20.0 Serum Glucose 192 H 74-106 mg/dL Calcium Level 10.0 8.7-10.4 mg/dL Total Bilirubin 0.4 0.2-1.0 mg/dL Aspartate Amino Transferase (AST) 57 H 13-40 U/L Alanine Aminotransferase (ALT) 33 7-40 U/L Alkaline Phosphatase 144 H 46-116 U/L Troponin I High Sensitivity 5 </=34 ng/L Total Protein 7.6 5.7-8.2 g/dL Albumin 4.8 3.2-4.8 g/dL Current Medications Medications (Trade) Dose Ordered Sig/Quinton Route Start Time Stop Time Status Last Admin Sodium Chloride 1,000 ml @ 1,000 mls/hr Q1H ONCE IV 07/29/24 23:30 07/30/24 00:29 DC 07/30/24 02:10 Ondansetron HCl (Zofran) 4 mg ONCE ONCE IV 07/29/24 23:30 07/29/24 23:31 DC 07/30/24 02:09 Morphine Sulfate 4 mg ONCE ONCE IV 07/29/24 23:30 07/29/24 23:31 DC 07/30/24 02:10 Time of 1ST Reevaluation: 02:23 Reevaluation 1ST: Improved Patient Education/Counseling: Diagnosis, Treatment Family Education/Counseling: No Family Present Departure 1 Departure Time of Disposition: 02:24 Impression: Primary Impression: Lesion of right ovary Additional Impression: Abdominal pain Disposition: 01 HOME / SELF CARE / HOMELESS Condition: Stable Discharged With: Self Critical Care Note Critical Care Time?: No Stability Stability form required: REYNALDO Ornelas MD Jul 30, 2024 01:01 LIGIA BAKER MD Jul 30, 2024 02:25
--- NOTE | 2024-07-30 01:36 | DVH ---
CLINICAL HISTORY: right flank pain TECHNIQUE: CT of the abdomen and pelvis was performed without intravenous contrast. This exam was per formed according to our departmental dose optimization program. Up-to-date CT equipment and radiation dose reduction techniques are utilized as appropriate. CTDI: [CTDIvol] DLP: 1268.18 WID: COMPARISON: None FINDINGS: Lower Thorax: Mild emphysema. Limits of normal-sized heart. Mild calcifications in the aortic valve a nd mild coronary artery calcifications, partially imaged. Liver and Biliary system: Unremarkable. Spleen: Unremarkable. Adrenal Glands and Kidneys: Normal adrenal glands. There is no hydronephrosis or nephrolithiasis. Pancreas and Retroperitoneum: Mildly atrophic pancreas. No retroperitoneal lymphadenopathy. Aorta and Major Vessels: Aortoiliac vessels are normal caliber containing [id number] calcified atherosclerotic plaque. Bowel, Mesentery and Peritoneal space: Normal caliber small and large bowel. Occasional colonic diver ticulosis. Normal appendix. Small amount of fluid distention of the lower esophagus. There is no free intraperitoneal air or fluid collection. Pelvis: There is a 2.9 cm cystic lesion in the right ovary / adnexa on series 2, image 80. Left ovary is atrophic. The uterus is atrophic. Urinary bladder is unremarkable, mildly distended. No pelvic ly mphadenopathy. Abdominal wall and Osseous Structures: Small Fat containing umbilical hernia. Multilevel lower thorac ic and lumbar spondylosis. Grade 1 anterolisthesis at L4-L5. Moderate degenerative disc space narrow ing at L5-S1. No destructive osseous lesion. IMPRESSION: 1. No noncontrast evidence of acute abnormality. 2. Mild emphysema. 3. Partially imaged mild coronary artery and aortic valve calcifications. 4. Mild colonic diverticulosis. 5. There is a 2.9 cm cystic lesion in the right ovary/ adnexa. This could be a postmenopausal cyst, though recommend obtaining pelvic ultrasound on a outpatient / nonemergent basis for characterization .
[2024-07-30] MEDS: ONDANSETRON HCL 4 MG/2 ML VIAL IV ONE (02:09)
[2024-07-30] MEDS: SODIUM CHLORIDE 0.9% 1,000 ML IV ONE (02:10)
[2024-07-30] MEDS: MORPHINE SULFATE 4 MG/ML SYR/VIAL IV ONE (02:10)
[2024-07-30 02:12] VITALS: O2SAT 97
[2024-07-30 02:19] LABS: Urine Bacteria None Seen /hpf (None Seen); Urine WBC None Seen /hpf (0 - 5)
[2024-07-30 02:29] LABS: Urine Blood TRACE /uL (Negative); Urine Clarity Clear (Clear); Urine Color Colorless (Yellow); Urine Protein, UAD 1+ (Negative); Urine Squamous Epithelial Cell FEW /hpf (<5); Urine Urobilinogen Normal (Negative); Urine pH 6.5 (5.0-9.0)
[2024-07-30 02:39] VITALS: BP 203/93; PULSE 67; RESP 19
[2024-07-30] MEDS: cloNIDine HCL 0.1 MG TAB PO ONE (03:19)
[2024-07-30] MEDS ORDERED: HYDR-4902 PO (04:06)
[2024-07-30] MEDS: oxyCODONE HCL 5MG TAB PO PRN (04:17)
[2024-07-30] MEDS: ONDANSETRON ODT 4 MG TAB PO ONE (04:18)
== END 2024-07-30 04:44 | disposition home or self-care (01) ==
LOC: ER 22:46
DX: N83.201 Unspecified ovarian cyst, right side (principal); R10.31 Right lower quadrant pain; E11.9 Type 2 diabetes mellitus without complications; I10 Essential (primary) hypertension; E03.9 Hypothyroidism, unspecified; Z79.899 Other long term (current) drug therapy
CPT/HCPCS: 36415; 71045; 74176; 80053; 81001; 84484; 85025; 96361; 96374; 96375; 99285; J2270; J2405; J7030; Q0162